=== PATIENT | female | born 1985 | race Caucasian/White ===

== ENCOUNTER 2016-12-05 05:18 | Inpatient (IN) | payer MEDICAID ==
[~2016-12-05] VITALS: Ht 157.5 cm; Wt 70.8 kg
[~2016-12-05 05:18] MED LIST: EZFE 200200 MG PO; IBUPROFEN600 MG PO; PERCOCET 5-3251 TAB PO; PRENATAL COMPLE1 TAB PO
[2016-12-05] MEDS ORDERED: PRENATAL COMPLE1 TAB PO (05:43)
[2016-12-05 05:44] VITALS: BP 123/64; Ht 157.5 cm; Wt 70.8 kg
[2016-12-05 06:27] LABS: HEMOGLOBIN 8.3 g/dL (12-16); MCH 20.6 pg (26.0-34.0); MCHC 29.6 g/dL (31.0-37.0); MCV 69.7 fL (80.0-100.0); MEAN PLATELET VOLUME 9.1 fL (7.4-10.4); RBC 4.02 10x6/uL (4.00-5.40); RDW 18.9 % (11.5-14.5); WBC 11.5 10x3/uL (4.8-10.8)
[2016-12-05 07:06] LABS: APPEARANCE HAZY (CLEAR); BACTERIA MODERATE /hpf (NONE SEEN); BILIRUBIN NEGATIVE (NEGATIVE); COLOR YELLOW (YELLOW); GLUCOSE NEGATIVE (NEGATIVE); KETONE NEGATIVE (NEGATIVE); LEUKOCYTE ESTERASE 2+ (NEGATIVE); MUCUS <1+ /lpf (NONE SEEN); NITRITE NEGATIVE (NEGATIVE); PROTEIN NEGATIVE (NEGATIVE); RED CELLS - URINE RARE /hpf (0-5)
[2016-12-05 20:00] VITALS: BP 103/64
[2016-12-06 00:21] VITALS: BP 101/62
[2016-12-06 04:33] VITALS: BP 100/71
[2016-12-06 06:03] LABS: BASOPHILS 0.1 % (0-2); EOSINOPHILS 1.3 % (0-7); HEMATOCRIT 27.8 % (36.0-48.0); IMMATURE GRANULOCYTES 0.6 % (0-5); LYMPHOCYTES 26.1 % (15-50); MCH 20.2 pg (26.0-34.0); MCHC 28.8 g/dL (31.0-37.0); MEAN PLATELET VOLUME 8.5 fL (7.4-10.4); MONOCYTES 6.3 % (2-11); NEUTROPHILS 65.6 % (40-80); RBC 3.97 10x6/uL (4.00-5.40); RDW 18.9 % (11.5-14.5); WBC 13.9 10x3/uL (4.8-10.8)
[2016-12-06 06:07] LABS: PLATELET COUNT 293 10x3/uL (130-400)
[2016-12-06 07:25] LABS: RAPID PLASMA REAGIN Non Reactive (Non Reactive)
[2016-12-06 08:00] VITALS: BP 92/59
[2016-12-06] MEDS ORDERED: HYDROCODON-ACE1 EAC7 PO (09:41)
[2016-12-06] MEDS ORDERED: IBUPROFEN600 MG PO (09:41)
== END 2016-12-06 13:45 | disposition home or self-care (01) | DRG 775 ==
LOC: D.LD 05:18
PROVIDERS: ADMIT Obstetrics & Gynecology
PROC: 10E0XZZ Delivery of Products of Conception, External Approach (ICD-10-PCS; principal; 2016-12-05)
PROC: 0KQM0ZZ Repair Perineum Muscle, Open Approach (ICD-10-PCS; 2016-12-05)
PROC: 3E033VJ Introduction of Other Hormone into Peripheral Vein, Percutaneous Approach (ICD-10-PCS; 2016-12-05)
DX: O99.02 Anemia complicating childbirth (principal); D64.9 Anemia, unspecified; Z3A.39 39 weeks gestation of pregnancy; Z37.0 Single live birth; O70.1 Second degree perineal laceration during delivery

== ENCOUNTER → 2019-06-30 09:23 | Outpatient (CLI) | payer MEDICAID ==
[2016-12-05 05:44] VITALS: BMI 28.6
[~2019-06-30 09:23] MED LIST changes: +HYDROCODON-ACE1 EAC7 PO
== END | disposition home or self-care (01) ==
LOC: D.LDO 09:23
PROVIDERS: ATTEND Obstetrics & Gynecology
DX: O36.5990 Maternal care for other known or suspected poor fetal growth, unspecified trimester, not applicable or unspecified (principal)

== ENCOUNTER 2019-07-07 09:18 | Inpatient (IN) | payer MEDICAID ==
[~2019-07-07] VITALS: Ht 157.5 cm; Wt 75.0 kg
[2019-07-09 01:08] LABS: HEMOGLOBIN 8.9 g/dL (12-16); MCH 21.3 pg (26.0-34.0); MCHC 28.7 g/dL (31.0-37.0); MCV 74.2 fL (80.0-100.0); MEAN PLATELET VOLUME 9.3 fL (7.4-10.4); RBC 4.18 10x6/uL (4.00-5.40); RDW 17.4 % (11.5-14.5); WBC 12.3 10x3/uL (4.8-10.8)
[2019-07-09 01:18] LABS: BILIRUBIN NEGATIVE (NEGATIVE); GLUCOSE NEGATIVE (NEGATIVE); KETONE NEGATIVE (NEGATIVE); NITRITE NEGATIVE (NEGATIVE); UROBILINOGEN NORMAL (NORMAL)
[2019-07-09 01:20] VITALS: BP 110/63; Ht 157.5 cm; Wt 75.0 kg
[2019-07-09 01:24] LABS: BACTERIA NONE SEEN /hpf (NEGATIVE); EPITHELIAL CELLS 0-5 /hpf (0-5); RED CELLS - URINE 0-5 /hpf (0-5); WHITE CELLS - URINE NSEEN /hpf (NEGATIVE)
--- NOTE | 2019-07-09 18:42 | NUR ---
PT C/O ABDOMINAL CRAMPING OF "5" ON 0-10 PAIN SCALE. NORCO 5/325 GIVEN PO ORDERED. INSTRUCTED ON MED. VERBALIZES UNDERSTANDING.
--- NOTE | 2019-07-09 19:30 | NUR ---
REPORT FROM YAKELIN DEVLIN
[2019-07-09 20:00] VITALS: BP 107/61
--- NOTE | 2019-07-09 20:30 | NUR ---
ASSESSMENT COMPLETED. PT IS SITTING UP IN BED WITH HER BABY IN HER LAP. PT HAS NO C/O AT THIS TIME. HEART SOUNDS NORMAL, LUNGS CLEAR, BOWEL SOUNDS HEARD. PT STATES THAT SHE HAS HAD A BM SINCE THE BABY WAS BORN. PT IS UP AD SHARLA IN HER ROOM. SHE IS VOIDING WELL. FUNDUS IS FIRM AND BLEEDING IS MODERATE. CALL LIGHT IN REACH AND PT KNOWS HOW TO USE. PT REQUESTED A CUP OF ICE WHICH WAS DELIVERED TO HER. IS IN THE ROOM.
--- NOTE | 2019-07-09 22:52 | NUR ---
PT REQUESTED PAIN MED FOR CRAMPING. [id number] 5 GIVEN PO. BABY IS IN THE ROOM. RESTING QUIETLY IN BED. IS IN THE ROOM.
--- NOTE | 2019-07-10 02:10 | NUR ---
PT AND BONDING WITH THE BABY. ENCOURAGED PT TO GET SOME REST TONIGHT.
--- NOTE | 2019-07-10 03:00 | NUR ---
PT C/O CRAMPING PAIN RATED A 7. NARCO 5 GIVEN PO. SHE HAD NO OTHER NEEDS AT THIS TIME.
[2019-07-10 06:10] LABS: BASOPHILS 0.2 % (0-2); EOSINOPHILS 1.6 % (0-7); HEMATOCRIT 30.4 % (36.0-48.0); HEMOGLOBIN 8.6 g/dL (12-16); IMMATURE GRANULOCYTES 0.3 % (0-5); LYMPHOCYTES 28.9 % (15-50); MCH 21.1 pg (26.0-34.0); MCHC 28.3 g/dL (31.0-37.0); MCV 74.7 fL (80.0-100.0); MONOCYTES 7.3 % (2-11); NEUTROPHILS 61.7 % (40-80); PLATELET COUNT 327 10x3/uL (130-400); RBC 4.07 10x6/uL (4.00-5.40); RDW 17.7 % (11.5-14.5); WBC 13.1 10x3/uL (4.8-10.8)
--- NOTE | 2019-07-10 06:11 | NUR ---
PT IS UP AND ABOUT IN HER ROOM. SHE'S TAKING A SHOWER. HUSBAMD IN ROOM. BABY SLEEPING IN HER CRIB. NO C/O OR NEEDS AT THIS TIME.
[2019-07-10 07:10] LABS: RAPID PLASMA REAGIN Non Reactive (Non Reactive)
[2019-07-10 08:02] VITALS: BP 112/73
--- NOTE | 2019-07-10 08:02 | NUR ---
THIS RN TO ROOM FOR SHIFT ASSESSMENT. PT SITTING UP IN BED, AAOx3, DENIES PAIN. PT STATES SHE JUST FININSHED BREAKFAST, DENIES NAUSEA. SHIFT ASSESSMENT COMPLETED, VSS, SEE FLOWSHEET FOR DOC. FF, ML, U/2. SMALL RUBRA LOCHIA, NO CLOTS. PT INSTRUCTED ON S/S TO REPORT REGARDING LOCHIA AND CLOTS, UNDERSTANDING VERBALIZED. MILD GENERALIZED EDEMA NOTED TO LE BILAT, NON-PITTING. PEDAL PULSES 2+ BILAT, NEG HOMANS SIGN BILAT. AM LABS REVIEWED. LEFT HAND PIV REMOVED NO LONGER INDICATED. PRESSURE HELD, BANDAID APPLIED. POC DISCUSSED WITH PT AND SIG OTHER. PT STATES SHE IS READY TO GO HOME TODAY. DENIES ANY NEEDS AT THIS TIME. SRUx2, CL IN REACH. WILL CONT TO MONITOR.
--- NOTE | 2019-07-10 09:05 | NUR ---
PT PROVIDED WITH CUP OF ICE AND COLA PER REQUEST, DENIES FURTHER NEEDS. WILL CONT TO MONITOR.
--- NOTE | 2019-07-10 10:28 | NUR ---
THIS RN TO ROOM FOR PT CHECK. PT LYING IN BED SUPINE, WATCHING TV WITH SIG OTHER ON BEDSIDE COUCH. INFANT RESTING IN BASINETTE AT BEDSIDE. PT DENIES NEEDS, STATES SHE WILL BE READY FOR HER PAIN MED SOON IT'S AVAILABLE FOR CRAMPING. D/C TO HOME DISCUSSED. WILL CONT TO MONITOR.
[2019-07-10] MEDS ORDERED: MOTRIN600 MG PEG (10:56)
[2019-07-10] MEDS ORDERED: HYDROCODON-ACE1 EAC7 PO (10:56)
--- NOTE | 2019-07-10 11:45 | NUR ---
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 PT ADMIN PRN NORCO AND MOTRIN ORDERED FOR CRAMPING PAIN RATED 5/10, WORSE WITH 8/10. PT GIVEN WRITTEN PRESCRIPTION FOR PAIN CONTROL POST D/C TO HOME. DISCHARGE TEACHING DONE. PT INSTRUCTED SHE WILL NEED TO CALL SATURDAY MORNING TO MAKE APPOINTMENT FOR 4 WEEKS. PT VERBALIZES UNDERSTANDING OF ALL TEACHING, SIGNS CHART COPIES OF INSTRUCTIONS. PT C/O PERINEAL PAIN AND HEMORRHOIDS, WILL OBTAIN PRN TOPICAL ANALGESICS.
--- NOTE | 2019-07-10 11:56 | NUR ---
PT PROVIDED WITH DERMAPLAST, TUCKS PADS, AND PROCTOFOAM FOR PERINEAL/RECTAL PAIN AND DISCOMFORT. PT INSTRUCTED ON USE. FRESH WATER AND SODA PROVIDED. PT DENIES FURTHER NEEDS. SRUx2, CL IN REACH. WILL CONT TO MONITOR.
--- NOTE | 2019-07-10 15:11 | NUR ---
PT SIG OTHER TO UNIT DESK ASKING IF PT MAY STILL HAVE PAIN MEDICATION A PATIENT EVEN THOUGH DISCHARGE TEACHING HAS BEEN COMPLETED. THIS RN TO ROOM. PT C/O PAIN RATED 6/10, CRAMPING. PT ADMIN NORCO ORDERED PRN, SEE EMAR FOR DOC. FRESH ICE WATER AND SODA PROVIDED PER REQUEST. PT DENIES FURTHER NEEDS. SITTING ON BEDSIDE, TALKING WITH SIG OTHER. WILL CONT TO MONITOR.
--- NOTE | 2019-07-10 16:43 | NUR ---
PT DISCHARGED, OFF UNIT AMBULATORY PER REFUSAL OF W/C. BUCKLED IN [place], WITH SIG OTHER TO DRIVE PT HOME.
== END 2019-07-10 16:43 | disposition home or self-care (01) | DRG 807 ==
LOC: D.LDO 09:18 → D.LD 07-09 00:27
PROVIDERS: Obstetrics & Gynecology; ADMIT Obstetrics & Gynecology; ATTEND Obstetrics & Gynecology
PROC: 10E0XZZ Delivery of Products of Conception, External Approach (ICD-10-PCS; principal; 2019-07-09)
DX: O70.0 First degree perineal laceration during delivery (principal); Z37.0 Single live birth; Z3A.38 38 weeks gestation of pregnancy